=== PATIENT | female | born 1995 | race Caucasian/White ===

== ENCOUNTER 2018-07-25 00:40 | Emergency (ER) | payer OTHER ==
[~2018-07-25] VITALS: Ht 172.7 cm; Wt 61.2 kg
--- NOTE | 2018-07-25 01:01 | NUR ---
PT A/OX4, RESPONSIVE TO VERBAL AND TACTILE STIMULI. PT C/O R FOOT/ANKLE PAIN THAT STARTED AROUND 1900 YESTERDAY WHILE TAKING A [employer] CLASS. PT STATES SHE WAS KICKING W/ HER L FOOT WHILE THE R FOOT WAS PLANTED ON THE GROUND. SHE FELT A "TWIST" IN HER R ANKLE BUT DENIES ANY IMPACT TO THE R FOOT/ANKLE. R FOOT/ANKLE PAIN PROVOKED UPON MOVEMENT, RADIATES DOWN TO THE TOP OF THE R FOOT, 7/10, CONSTANT. R FOOT/ANKLE NOT SWOLLEN IN APPEARANCE, WARM TO TOUCH, NO VISIBLE DEFORMITY. PT DENIES C/P, SOB, N/V/D, DIZZINESS, HEADACHE. PT TRANS TO BED USING W/C. JEY GUTIERREZ AT BEDSIDE.
--- NOTE | 2018-07-25 01:10 | NUR ---
XRAY AT BEDSIDE.
[2018-07-25] MEDS ORDERED: HYDROCODONE/APAP 5-325MG TABLET ONE (01:22)
--- NOTE | 2018-07-25 01:25 | NUR ---
DPatient discharged to home in stable conditon. Written and verbal after care instructions given. Patient verbalizes understanding of instructions. CRUTCHES DISPENSED, CRUTCH EDUCATION PROVIDED. PT DEMONSTRATES SAFE USE OF CRUTCHES. PT MEDICATED ORDERED BY MD. PT D/C HOME W/ PRESCRIPTION FOR ANALGESIC. PT INSTRUCTED NOT TO DRIVE, PT WILL BE DRIVEN HOME BY FAMILY IN PRIVATE VEHICLE. ALL BELONGINGS W/ PT. PT SELF-AMBULATED W/ AID OF CRUTCHES WITHOUT DIFFICULTY.
[2018-07-25 01:26] VITALS: BP 120/72
[2018-07-25] MEDS ORDERED: HYDROCODONE/APAP 5-325MG TABLET PO ONE (01:30)
== END 2018-07-25 01:27 | disposition home or self-care (01) ==
LOC: ER 00:46
DX: S93.401A Sprain of unspecified ligament of right ankle, initial encounter (principal); E10.9 Type 1 diabetes mellitus without complications; X58.XXXA Exposure to other specified factors, initial encounter; Y93.89 Activity, other specified; Y92.89 Other specified places as the place of occurrence of the external cause; Y99.8 Other external cause status
CPT/HCPCS: 73610; 73630; 99284; A4663